=== PATIENT | female | born 1960 | race Caucasian/White ===

== ENCOUNTER 2019-12-05 12:59 | Outpatient (CLI) | payer OTHER, SELFPAY ==
--- NOTE | ~2019-12-05 | MM_ITS ---
EXAMINATION: MM diagnostic cali LT w sherri HISTORY: Follow-up left breast calcifications TECHNIQUE: Additional 3-D tomosynthesis images of the left breast were performed and synthetic 2-D im ages were generated. CAD analysis was submitted and interpreted. COMPARISON: 05/04/2018 FINDINGS: Breast composed of scattered areas of fibroglandular density. There has been no significant change to punctate clustered calcifications in the upper inner quadrant of the left breast posterior ly. No suspicious masses or architectural distortion. IMPRESSION: 1. Stable nonspecific clustered left breast calcifications, likely benign. 2. Recommend 6 month follow-up diagnostic bilateral mammogram BI-RADS category 3, probably benign findings. Reviewed, dictated and finalized at location A.
== END 2019-12-05 13:00 | disposition home or self-care (01) ==
LOC: ANHIMG 13:01
PROVIDERS: PCP Internal Medicine; Visit Provider Student in an Organized Health Care Education/Training Program
DX: R92.8 Other abnormal and inconclusive findings on diagnostic imaging of breast (principal)
CPT/HCPCS: 77061; 77065; G0279

== ENCOUNTER 2020-06-25 12:45 | Outpatient (CLI) | payer OTHER, SELFPAY ==
--- NOTE | ~2020-06-25 | DEXA_ITS ---
Bone Density Report Name: Dia Rivers Age: 60 Sex: Female Ethnicity: White Date of : 1960 Indication: postmenopausal; cancer; hysterectomy; Referring Provider: Danita Lane Study: Bone densitometry was performed. Exam Date: June 25, 2020 Accession number: [id number] Bone Density: Region BMD T-score Z-score Classification AP Spine (L1-L4) 1.267 2.0 3.5 Normal Femoral Neck (Left) 0.920 0.6 2.0 Normal Total Hip (Left) 1.221 2.3 3.3 Normal Total Hip Bilateral Avg 1.207 2.2 3.2 Normal Femoral Neck (Right) 0.938 0.8 2.1 Normal Total Hip (Right) 1.191 2.0 3.1 Normal World Health Organization criteria for BMD impression classify patients as: Normal (T-score at or above -1.0), Osteopenia (T-score between -1.0 and -2.5), or Osteoporosis (T-score at or below -2.5). 10-year Fracture Risk: FRAX not reported because: All T-scores for Spine Total, Hip Total, Femoral Neck at or above -1.0 Clinical Information Provided by Patient: Has used the following medications: Vitamin D, Calcium Has the following medical conditions: Cancer, Hysterectomy Patient maximum height was 66 Menopause Age: 54 No regular weight bearing exercise Drinks caffeinated beverages Onset of menses at age 11 Number of children 2 Impression: The patient has normal bone mass. Discussion: BONE DENSITY IS ABOVE THE MINIMUM DESIRABLE LEVEL AT ALL SKELETAL SITES TESTED. This patient?s bone mineral density is above the minimum desirable level (T-score -1.0 or better) at all sites measured. The patient should follow a healthful lifestyle (good nutrition with adequate calcium and vitamin D, and appropriate weight-bearing exercise). Follow-Up: Consider repeating this study in 5 years or sooner if there is some new clinical indication. Reported by: GENNARO on 06/25/2020 1:38:00 PM. Reviewed, dictated and finalized at location AIlan KILGORE
--- NOTE | ~2020-06-25 | MM_ITS ---
EXAMINATION: MM diagnostic mammo BI HISTORY: Follow-up left breast calcifications TECHNIQUE: Additional 3-D tomosynthesis images of the breasts were performed and synthetic 2-D images were generated. CAD analysis was submitted and interpreted. COMPARISON: Comparison to multiple prior studies sequentially, with oldest reviewed study dated 09/2017. BREAST PARENCHYMAL COMPOSITION: BREAST PARENCHYMAL COMPOSITION: There are scattered areas of fibroglandular density. FINDINGS: The breasts are stable. No significant change to clustered calcifications in the upper inne r quadrant of the left breast posteriorly. No new masses or architectural distortion in either breast . IMPRESSION: 1. Stable left breast calcifications, likely benign. 2. Recommend 6 month follow-up diagnostic left mammogram BI-RADS category 3, probably benign findings. Reviewed, dictated and finalized at location A. HAND
== END 2020-06-25 12:46 | disposition home or self-care (01) ==
PROVIDERS: PCP Internal Medicine; Visit Provider Student in an Organized Health Care Education/Training Program
DX: R92.8 Other abnormal and inconclusive findings on diagnostic imaging of breast (principal); Z78.0 Asymptomatic menopausal state
CPT/HCPCS: 77066; 77080

== ENCOUNTER 2020-12-26 11:46 | Outpatient (CLI) | payer OTHER, SELFPAY ==
--- NOTE | ~2020-12-26 | MM_ITS ---
EXAMINATION: MM diagnostic cali LT w sherri HISTORY: Follow-up left breast calcifications TECHNIQUE: Additional 3-D tomosynthesis images of the left breast were performed and synthetic 2-D im ages were generated. CAD analysis was submitted and interpreted. COMPARISON: Comparison to multiple prior studies sequentially, with oldest reviewed study dated 04/29. BREAST PARENCHYMAL COMPOSITION: Breast composed of scattered areas of fibroglandular density. FINDINGS: There are clustered punctate calcifications centered in the upper inner quadrant of the lef t breast without significant change from prior examinations. No new masses, calcifications or archite ctural distortion in the left breast to suggest malignancy. IMPRESSION: 1. Stable benign-appearing left breast calcifications. No evidence for malignancy. 2. Routine yearly screening mammogram and regular clinical breast examination are recommended. BI-RADS Category 2: Benign finding(s). Reviewed, dictated and finalized at location A. IMPRESSION: 1. Stable benign-appearing left breast calcifications. No evidence for malignan cy. 2. Routine yearly screening mammogram and regular clinical breast examination a re recommended. BI-RADS Category 2: Benign finding(s).
== END 2020-12-26 11:47 | disposition home or self-care (01) ==
LOC: ANHIMG 11:49
PROVIDERS: PCP Internal Medicine; Visit Provider Student in an Organized Health Care Education/Training Program
DX: R92.8 Other abnormal and inconclusive findings on diagnostic imaging of breast (principal)
CPT/HCPCS: 77061; 77065; G0279

== ENCOUNTER 2021-07-08 15:28 | Outpatient (CLI) | payer OTHER, SELFPAY ==
--- NOTE | ~2021-07-08 | MM_ITS ---
EXAMINATION: MM screening cali BI w sherri HISTORY: Screening TECHNIQUE: Craniocaudal and mediolateral oblique 3-D tomosynthesis images were obtained and synthetic 2-D images were generated. CAD analysis was submitted and interpreted. COMPARISON: Comparison to multiple prior studies sequentially, with oldest reviewed study dated 11/23. BREAST PARENCHYMAL COMPOSITION: There are scattered areas of fibroglandular density. FINDINGS: There are developing asymmetries in the right breast. No suspicious calcifications in the r ight breast. There are clustered calcifications in the upper inner quadrant of the left breast software programmer iorly which are not changed from prior studies. No new masses, calcifications or architectural distor tion in the left breast to suggest malignancy. IMPRESSION: 1. Developing right breast asymmetries. 2. Additional mammographic views and possible breast ultrasound are recommended. BI-RADS Category 0: Incomplete: Needs additional imaging evaluation. Reviewed, dictated and finalized at location A. ATTACHER IMPRESSION: 1. Developing right breast asymmetries. 2. Additional mammographic views and possible breast ultrasound are recommended . BI-RADS Category 0: Incomplete: Needs additional imaging evaluation.
== END 2021-07-08 15:29 | disposition home or self-care (01) ==
LOC: ANHIMG 15:34
PROVIDERS: PCP Internal Medicine; Visit Provider Student in an Organized Health Care Education/Training Program
DX: Z12.31 Encounter for screening mammogram for malignant neoplasm of breast (principal); R92.8 Other abnormal and inconclusive findings on diagnostic imaging of breast
CPT/HCPCS: 77063; 77067

== ENCOUNTER 2021-07-23 13:12 | Outpatient (CLI) | payer OTHER, SELFPAY ==
--- NOTE | ~2021-07-23 | MM_ITS ---
EXAMINATION: MM diagnostic cali RT w sherri HISTORY: Right breast asymmetries on screening mammogram TECHNIQUE: Additional 3-D tomosynthesis images of the right breast were performed and synthetic 2-D i mages were generated. CAD analysis was submitted and interpreted. COMPARISON: 07/08/2021, 06/25/2020,05/13/2019, 11/15/2018 FINDINGS: There is a return to baseline fibroglandular appearance with spot compression of the right breast in the areas questioned on screening mammogram. A stable mass in the middle third of the outer breast has an appearance consistent with an intramammary lymph node. IMPRESSION: 1. No mammographic evidence of malignancy. 2. Recommend routine screening mammography in one year. BI-RADS Category 2: Benign finding(s). Reviewed, dictated and finalized at location A. LFISH CHECKER
== END 2021-07-23 13:13 | disposition home or self-care (01) ==
PROVIDERS: PCP Internal Medicine; Visit Provider Student in an Organized Health Care Education/Training Program
DX: R92.8 Other abnormal and inconclusive findings on diagnostic imaging of breast (principal)
CPT/HCPCS: 77061; 77065; G0279

== ENCOUNTER 2022-07-09 14:31 | Outpatient (CLI) | payer OTHER, SELFPAY ==
--- NOTE | ~2022-07-09 | DEXA_ITS ---
Bone Density Report Name: SYED HARVEY Age: 62 Sex: Female Ethnicity: White Date of : 1960 Indication: postmenopausal; screening for osteoporosis; hysterectomy; Referring Provider: MONICA COLON Study: Bone densitometry was performed. Exam Date: July 09, 2022 Accession number: [id number] Bone Density: Region BMD T-score Z-score Classification AP Spine(L1-L4) 1.220 1.6 3.2 Normal Femoral Neck (Left) 0.972 1.1 2.5 Normal Total Hip (Left) 1.244 2.5 3.6 Normal Femoral Neck (Right) 0.941 0.8 2.3 Normal Total Hip (Right) 1.239 2.4 3.6 Normal Total Hip Mean 1.242 2.5 3.6 Normal World Health Organization criteria for BMD impression classify patients as: Normal (T-score at or above -1.0), Osteopenia (T-score between -1.0 and -2.5), or Osteoporosis (T-score at or below -2.5). 10-year Fracture Risk: FRAX not reported because: All T-scores for Spine Total, Hip Total, Femoral Neck at or above -1.0 Clinical Information Provided by Patient: Has used the following medications: Calcium, Multivitamin Has the following medical conditions: Hysterectomy Patient maximum height was 66.75 Menopause Age: 54 No regular weight bearing exercise Drinks caffeinated beverages Onset of menses at age 11 Number of children 2 Impression: The patient has normal bone mass. Discussion: LOW RISK OF FRACTURE; BONE DENSITY IS WELL ABOVE THE MINIMUM DESIRABLE LEVEL AND ABOVE AVERAGE FOR AGE AND SEX AT ALL SKELETAL SITES TESTED. This person's bone density is above expected limits for age and sex. This is rarely clinically significant, but should be pursued if there are significant musculoskeletal complaints. The patient should follow a healthful lifestyle (good nutrition with adequate calcium and vitamin D, and appropriate weight-bearing exercise). Follow-Up: Consider repeating this study in 5 years or sooner if there is some new clinical indication. Reported by: IRIS on 07/09/2022 3:06:00 PM. Reviewed, dictated and finalized at location AIlan KILGORE
--- NOTE | ~2022-07-09 | MM_ITS ---
EXAMINATION: MM screening cali BI w sherri HISTORY: Screening mammogram TECHNIQUE: Craniocaudal and mediolateral oblique 3-D tomosynthesis images were obtained and synthetic 2-D images were generated. CAD analysis was submitted and interpreted. COMPARISON: 07/23/2021 diagnostic right mammogram 07/08/2021 bilateral screening mammogram 12/26/2020 diagnostic left mammogram 06/25/2020 bilateral diagnostic mammogram 12/05/2019 diagnostic left mammogram 06/03/2019 No significant mammogram and limited left breast ultrasound 06/03/2019 diagnostic left mammogram and limited left breast ultrasound 05/13/2019 bilateral screening mammogram BREAST PARENCHYMAL COMPOSITION: There are scattered areas of fibroglandular density. FINDINGS: Scattered bilateral benign calcifications. There is no evidence of suspicious mass, calcifi cation, or architectural distortion to suggest malignancy in either breast. There has been no suspici ous interval change. IMPRESSION: 1. No mammographic evidence of malignancy. 2. Recommend routine screening mammography in one year. BI-RADS Category 2: Benign finding(s). Reviewed, dictated and finalized at location A. TH CONTROL TESTER
== END 2022-07-09 14:32 | disposition home or self-care (01) ==
LOC: ANHIMG 14:32
PROVIDERS: PCP Internal Medicine; Visit Provider Obstetrics & Gynecology
DX: Z12.31 Encounter for screening mammogram for malignant neoplasm of breast (principal); Z78.0 Asymptomatic menopausal state
CPT/HCPCS: 77063; 77067; 77080

== ENCOUNTER → 2023-04-01 10:35 | Outpatient (CLI) | payer OTHER, SELFPAY ==
--- NOTE | ~2023-04-01 | US_ITS ---
Limited Abdominal Sonogram: Real-time sonographic imaging of the right upper quadrant was performed. Clinical History: Abnormal serum enzyme levels Findings: The liver appears echogenic, with no evidence of mass lesion or bile duct dilatation. Main portal vein demonstrates normal direction of flow. The gallbladder is absent, compatible prior farzana cystectomy. The common bile duct measures 7 mm. The visualized pancreas, aorta, and IVC are unremark able. Impression: Diffuse fatty infiltration of liver. Status post cholecystectomy. Reviewed, dictated and finalized at location M. Impression: Diffuse fatty infiltration of liver. Status post cholecystectomy.
== END ==
PROVIDERS: PCP Internal Medicine; Visit Provider Internal Medicine
DX: R74.8 Abnormal levels of other serum enzymes (principal); Z90.49 Acquired absence of other specified parts of digestive tract
CPT/HCPCS: 76705

== ENCOUNTER 2023-08-20 14:09 | Outpatient (CLI) | payer OTHER, SELFPAY ==
--- NOTE | ~2023-08-20 | MM_ITS ---
EXAMINATION: MM screening [facility] BI w sherri HISTORY: Screening TECHNIQUE: Craniocaudal and mediolateral oblique 3-D tomosynthesis images were obtained and synthetic 2-D images were generated. CAD analysis was submitted and interpreted. COMPARISON: Comparison to multiple prior studies sequentially, with oldest reviewed study dated 05/30. BREAST PARENCHYMAL COMPOSITION: Not dense: There are scattered areas of fibroglandular density. FINDINGS: No significant change to bilateral breast calcifications. There is no evidence of suspiciou s mass, calcification, or architectural distortion to suggest malignancy in either breast. There has been no suspicious interval change. IMPRESSION: 1. No mammographic evidence of malignancy. 2. Recommend routine screening mammography in one year. BI-RADS Category 2: Benign finding(s). Reviewed, dictated and finalized at location A. AGE MANAGEMENT ARCHITECT
== END 2023-08-20 14:10 | disposition home or self-care (01) ==
PROVIDERS: PCP Internal Medicine; Visit Provider Registered Nurse
DX: Z12.31 Encounter for screening mammogram for malignant neoplasm of breast (principal)
CPT/HCPCS: 77063; 77067

== ENCOUNTER 2024-09-23 15:07 | Outpatient (CLI) | payer MEDICARE, SELFPAY ==
--- NOTE | ~2024-09-23 | MM_ITS ---
EXAMINATION: MM screening cali BI w sherri HISTORY: Screening TECHNIQUE: Craniocaudal and mediolateral oblique 3-D tomosynthesis images were obtained and synthetic 2-D images were generated. CAD analysis was submitted and interpreted. COMPARISON: 08/20/2023 and dating back to 06/25/2020 BREAST PARENCHYMAL COMPOSITION: The breasts are heterogeneously dense, which may obscure small masses . FINDINGS: Interval increase in the microcalcifications when compared with prior imaging in the centra l upper left breast for which magnification views are recommended. Otherwise stable parenchymal pattern without architectural distortion, discrete masses or significant asymmetry. IMPRESSION: Interval increase in the number of microcalcifications when compared with prior imaging in the centra l upper left breast for which magnification views are recommended. BI-RADS Category 0: Incomplete: Needs additional imaging evaluation. Reviewed, dictated and finalized at location A. IMPRESSION: Interval increase in the number of microcalcifications when compared with prior imaging in the central upper left breast for which magnification views are rec ommended. BI-RADS Category 0: Incomplete: Needs additional imaging evaluation.
--- OUTSIDE RECORDS SUMMARY | 2024-09-23 15:10 | XMS_ITS | Clinical Summary ---
Author Organization [facility] Address [address] [place] [address] Care Team Providers Care Forms Examiner Name Role Phone Artie Berger MD Primary Care Provider [phone] [facility],non-owned Affiliates and Associated Physician Practices is amultiple site organization consisting of ambulatory clinics and hospital sitesin [place], [place], [place] and [place]. This disclosure is being madepursuant to the Care Everywhere program and may not contain all information available regarding this patient. Last updated 18.[facility] Allergies Active Allergy Reactions Criticality Noted Date Comments Vitamin K Other Low 05/05/2017 Cellulitis Medications * Be aware that medications may not be up to date on this document. Alwaysverify current medications with the patient. Medication Sig Dispensed Refills Start Date End Date Status Multiple Vitamin (MULTI VITAMIN PO) Active calcium 500 mg TABS tablet Take 500 mg by mouth 2 times daily with morning and evening meal Active [place]-3 Fatty Acids (FISH OIL OMEGA-3 PO) Act karen levothyroxine (SYNTHROID) 100 MCG tablet Take 100 mcg by mouth daily before breakfast Active lisinopril-hydroCHLOR Othiazide (PRINZIDE; ZESTORETIC) 20-12.5 MG tablet Take 1 tablet by mouth once daily Active aspirin (ASPIRIN) 81 MG tablet Take 81 mg by mouth once daily Active Active Problems Problem Noted Date Diagnosed Date Lichen sclerosus et atrophicus 05/05/2017 Hyperlipidemia 05/05/2017 Type 2 diabetes mellitus without complications 1 07/05/2016 Essential (primary) hypertension 05/05/2017 Hemorrhoids 05/05/2017 Endometrial cancer 10/30/2015 Family History Medical History Relation Name Comments Cancer - Colon Paternal Grandfather Relation Name Status Comments Paternal Grandfather Social History Tobacco Use Types Packs/Day Years Used Date Smoking Tobacco: Never Smokeless Tobacco: Never Alcohol Use Standard Drinks/Week Comments Yes 0 (1 standard drink = 0.6 oz pur e alcohol) Sex and Gender Information Value Date Recorded Sex Assigned at Not on file Gender Identity Not on file Sexual Orientation Not on file Last Filed Vital Signs Vital Sign Reading Time Taken Comments Blood Pressure 124/82 01/05/2018 3:01 PM CDT Pulse - - Temperature - - Respiratory Rate - - Oxygen Saturation - - Inhaled Oxygen Concentration - - Weight 110.2 kg (243 lb) 01/05/2018 3:01 PM CDT Height 167.6 cm (5' 6 ) 01/05/2018 3:01 PM CDT Body Mass Index 39.22 01/05/2018 3:01 PM CDT Plan of Treatment Health Maintenance Due Date Last Done Comments BONE DENSITY TESTING 1960 COLOGUARD (AGES 45-75) - COL ON CA SCREENING 1960 COLON MONITORING 1960 COLONOSCOPY - COLON CA SCREENING 1960 CT COLONOGRAPHY - COLON CA SCREENING 1960 Colorectal Cancer Screening 1960 FIT - COLON CA SCREENING 1960 FLEX SIG - COLON CA SCREENING 1960 LIPID TESTING 1960 MAMMOGRAM 1960 PAP SMEAR 1959 HIV SCREENING 1974 HEPATITIS C SCREENING 04/21/1977 DTAP/TDAP/TD VACCINES (1 - Tdap) 1978 PNEUMOCOCCAL VACCINE 50+ (1 of 1 - PCV) 2009 ZOSTER VACCINE (1 of 2) 2009 SCREENING FOR DIABETES 01/05/2018 COVID-19 VACCINE ( - 2023-2 5 season) 2024 INFLUENZA VACCINE (#1) 2024 DEPRESSION SCREENING 06/29/2024 Respiratory Syncytial Virus (RSV) Vaccine Pt: or over 60 yrs (1 - 1-dose 75+ series) 2034 HEPATITIS B VACCINE Aged Out No longe r eligible based on patient's age to complete this topic HIB VACCINE Aged Out No longer eligi ble based on patient's age to complete this topic HPV VACCINE Aged Out No longer eligi ble based on patient's age to complete this topic MENINGOCOCCAL (Group B) VACC INE SHARED DECISION-MAKING Aged Out No longer eligibl e based on patient's age to complete this topic MENINGOCOCCAL GROUPS A/C/Y/W VACCINE Aged Out No longer eligible b ased on patient's age to complete this topic Care Teams Forms Examiner Relationship Specialty Start Date End Date Artie Berger MD [address] [place] [address] [address] [place] [address] PCP - General 10/24/15
--- OUTSIDE RECORDS SUMMARY | 2024-09-23 15:10 | XMS_ITS | CONTINUITY OF CARE DOCUMENT ---
Author Name madi barraza Address Unknown Organization [facility] Address [address] [place] [address] Phone [phone] Care Team Providers Care Cake Decorator Name Role Phone Grzegorz HUANG, Nydia Unavailable INSURANCE PROVIDERS Payer name Policy type / Coverage type Miranda red green party ID [employer] PPO Other [id number]
--- OUTSIDE RECORDS SUMMARY | 2024-09-23 15:10 | XMS_ITS | Clinical Summary ---
Author Organization [facility] Address [address] [place] [address] Care Team Providers Care Personnel Research Psychologist Name Role Phone Artie Berger MD Primary Care Provider Allergies Active Allergy Reactions Criticality Noted Date Comments Menaquinone-7 (Vitamin K2) Rash Low 8 Morphine Nausea and Vomiting Low 05/26/2018 Medications levothyroxine 100 mcg tablet Take 100 mcg by mouth daily. Active lisinopril-hydr oCHLOROthiazide (ZESTORETIC) 20-12.5 mg tablet Take 1 Tablet by mouth daily. Active metFORMIN (GLUCOPHAGE) 1,000 mg tablet Take 1,000 mg by mouth 2 times daily with meals. Active pravastatin (PRAVACHOL) 40 mg tablet Take 40 mg by mouth late in the day. Active calcium carbonate/vitam in D3 (CALCIUM 500 + D ORAL) Take by mouth daily. Active multivitamin (DAILY-EARNEST) tablet Take 1 Tablet by mouth daily. Active clobetasol 0.025 % Cream Apply to affected area 1 time daily as needed. Active fish oil-omega-3 fatty acids (FISH OIL) 340-1,000 mg Capsule Take by mouth. 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 Gender Identity Not on file Sexual Orientation Not on file Last Filed Vital Signs Vital Sign Reading Time Taken Comments Blood Pressure 127/81 01/06/2019 12:59 PM CDT Pulse 71 01/06/2019 12:59 PM CDT Temperature 36.7 C (98 F) 01/06/2019 12:59 PM CDT Respiratory Rate - - Oxygen Saturation 97% 01/06/2019 12: 59 PM CDT Inhaled Oxygen Concentration - - Weight 106.6 kg (235 lb 1.6 oz) 019 12:59 PM CDT Height 167.6 cm (5' 6 ) 01/06/2019 12:5 9 PM CDT Body Mass Index 37.95 01/06/2019 12:59 PM CDT Plan of Treatment Health Maintenance Due Date Last Done Comments DIABETES ANNUAL FOOT EXAM 1977 DIABETES ANNUAL RETINAL EXAM 1977 DIABETES HBA1C Q 6 MONTHS 1977 DIABETES MICROALBUMIN ANNUAL SCREEN 1977 LDL CHOLESTEROL ANNUAL 1977 DTAP/TDAP/TD VACCINES (1 - Tdap) 1978 PNEUMOCOCCAL VACCINE 50+ YEA RS (1 of 2 - PCV) 1978 COLORECTAL SCREENING 2004 Colorectal Cancer Screening 2004 FIT-DNA Q 3 years 2004 FIT/FOBT Q 1 year 2004 Flex Sig/CT Colonography Q 5 years 2004 ZOSTER VACCINE (1 of 2) 2009 BREAST CANCER SCREENING 11/24/2019 11/24/19 19, 06/01/2018, 05/18/2018, Additional history exists INFLUENZA VACCINE (#1) 2024 OSTEOPOROSIS SCREENING 2024 RSV VACCINE (60+ or ) (1 - 1-dose 75+ series) 2034 Procedures Procedure Name Priority Date/Time Associated Diagnosis Comments MAMMOGRAM REPORT Routine 11/23/2018 from Last 3 Months or Most Recently Relevant to Health Maintenance Results * MAMMOGRAM REPORT (11/23/2018) us Abstract Provider MAMMO ORDERABLES Edited Result - Final [facility] from Last 3 Months or Most Recently Relevant to Health Maintenance Care Teams Personnel Research Psychologist Relationship Specialty Start Date End Date Artie Berger MD [address] [facility] [address] [place] [address] PCP - General Internal Medicine 05/25/18
== END 2024-09-23 15:08 | disposition home or self-care (01) ==
LOC: ANHIMG 15:09
PROVIDERS: PCP Internal Medicine; Visit Provider Nurse Practitioner Obstetrics & Gynecology
DX: Z12.31 Encounter for screening mammogram for malignant neoplasm of breast (principal); R92.8 Other abnormal and inconclusive findings on diagnostic imaging of breast
CPT/HCPCS: 77063; 77067

== ENCOUNTER 2024-10-03 12:16 | Outpatient (CLI) | payer MEDICARE, SELFPAY ==
--- NOTE | ~2024-10-03 | MM_ITS ---
EXAMINATION: MM diagnostic cali LT w sherri HISTORY: Follow-up left breast calcifications TECHNIQUE: Additional 3-D tomosynthesis images of the left breast were performed and synthetic 2-D im ages were generated. CAD analysis was submitted and interpreted. COMPARISON: Comparison to multiple prior studies sequentially, with oldest reviewed study dated 12/26. BREAST PARENCHYMAL COMPOSITION: Not dense: There are scattered areas of fibroglandular density. FINDINGS: The left breast is stable. Clustered punctate monomorphic calcifications centered in the up per inner quadrant of the left breast are not significantly changed from prior examinations dating ba ck to 12/26/2020 allowing for differences of technique. No new masses, calcifications or architectural distortion. IMPRESSION: 1. Stable benign-appearing left breast calcifications dating back to 12/26/2020. No evidence for malig jesse. 2. Routine yearly screening mammogram and regular clinical breast examination are recommended. BI-RADS Category 2: Benign finding(s). Reviewed, dictated and finalized at location A. IMPRESSION: 1. Stable benign-appearing left breast calcifications dating back to 12/26/2020. No evidence for malignancy. 2. Routine yearly screening mammogram and regular clinical breast examination a re recommended. BI-RADS Category 2: Benign finding(s).
--- OUTSIDE RECORDS SUMMARY | 2024-10-03 13:56 | XMS_ITS | Clinical Summary ---
Author Organization [facility] Address [address] [place] [address] Care Team Providers Care Corporate Aircraft Mechanic Name Role Phone Artie Berger MD Primary Care Provider [phone] Source Comments [facility],non-owned Affiliates and Associated Physician Practices is amultiple site organization consisting of ambulatory clinics and hospital sitesin [place], [place], [place] and [place]. This disclosure is being madepursuant to the Care Everywhere program and may not contain all information available regarding this patient. Last updated 18.[facility] Allergies Active Allergy Reactions Criticality Noted Date [...] daily with morning and evening meal Active Slade-3 Fatty Acids (FISH OIL OMEGA-3 PO) Act [...] 2 diabetes mellitus without complications 1 07/05/2016 Overview (09/28/2024): IMO 09/28/2024 Essential (primary) hypertension 05/05/2017 Hemorrhoids 05/05/2017 Endometrial [...] VACCINE ( - 2023-2 5 season) 2024 DEPRESSION SCREENING 06/29/2024 INFLUENZA VACCINE (Season Ended) 2025 Respiratory Syncytial Virus (RSV) Vaccine Pt: or [...] age to complete this topic Care Teams Corporate Aircraft Mechanic Relationship Specialty Start Date End Date Artie Berger MD [address] [place] [id number] PCP - General 10/24/15
--- OUTSIDE RECORDS SUMMARY | 2024-10-03 13:56 | XMS_ITS | Continuity of Care Document ---
Author Organization [facility] Address [address] [place] [address] Phone Care Team Providers Care Coat Fitter Name Role Phone Marvin Edd Unavailable Unavailable Procedures Procedure Date Office/outpatient Visit, Est Office/outpatient Visit, Est Office/outpatient Visit, Est Advance Directives Directive Yes / No Effective Date File Name No Information Encounters Encounter Description Practice Location Reason(s) For Visit Diagnoses Date Provider Providers Copied on Encounter Office/outpat ient Visit, [facility], [address] [place] [address] [address], [place], [place], [id number], [place] tel:[phone] [facility] No Information 0 Krishnasamy Edd. [address] [address], [place], [place], [facility], [place]. tel:[phone] Office/outpat ient Visit, [facility], [address], [place], [place], [id number], [place] tel:[phone] [facility] No Information 0 Krishnasamy Edd. [address], [place], [address], [place]. tel:[phone] Office/outpat ient Visit, [facility], [address] [place] [address] [address], [place], [place], [id number], tel:[phone] [place] [facility] No Information 0-201 0 Marvin Puga. [facility], [facility] [address], [place], [place], [facility], . tel:[phone] Referring Provider: Delfin Toscano, [address] [facility] [address], [place], [place], [facility]. tel:[phone] Family History Family Member Type Diagnosis Age At Onset No Information Payers Payer name Insurance type Covered alliance party ID Authoriza maite(s) [employer] SOI CI [id number] Social History Type Description Quantity Date Captured Comments Sex Female Smoking Status No Information Chief Complaint And Reason For Visit No Information Reason For Referral Reason For Referral No Information History Of Present Illness Encounter Date Complaint History Of Prese nt Illness No Information Functional Status Date Functional Assessmen t No Information Instructions Date Instruction Additional Infor mation No Information Assessments Type Assessment Date No Information Patient Care Teams Name Effective Dates (start - stop) Status Members No Information
--- OUTSIDE RECORDS SUMMARY | 2024-10-03 13:56 | XMS_ITS | CONTINUITY OF CARE DOCUMENT ---
Author Name madi barraza Address Unknown Organization [facility] Address [address] [place] [address] Phone [phone] Care Team Providers Care Roofer Applicator Name Role Phone Grzegorz HUANG, Nydia Unavailable INSURANCE PROVIDERS Payer name Policy type / Coverage type Miranda red democrat ID [id number] PPO Other [id number]
--- OUTSIDE RECORDS SUMMARY | 2024-10-03 13:56 | XMS_ITS | Clinical Summary ---
Author Organization [facility] Address [address] [place] [address] Care Team Providers Care Installation Coordinator Name Role Phone Artie Berger MD Primary Care Provider [phone] Allergies Active Allergy Reactions Criticality Noted Date [...] on file Legal Sex Female 2:39 PM LICENSED WEIGHER Gender Identity Not on file Sexual Orientation [...] Recently Relevant to Health Maintenance Care Teams Installation Coordinator Relationship Specialty Start Date End Date Artie Berger MD [address] [facility] [address] [place] [address] PCP - General Internal Medicine 05/25/18
== END 2024-10-03 12:17 | disposition home or self-care (01) ==
LOC: ANHIMG 12:16
PROVIDERS: PCP Internal Medicine; Visit Provider Nurse Practitioner Obstetrics & Gynecology
DX: R92.8 Other abnormal and inconclusive findings on diagnostic imaging of breast (principal)
CPT/HCPCS: 77061; 77065; G0279

== ENCOUNTER 2025-02-22 11:00 | Outpatient (CLI) | payer MEDICARE, SELFPAY ==
--- NOTE | ~2025-02-22 | US_ITS ---
EXAMINATION: US aorta [facility] DATE: 02/22/2025 12:42 CDT INDICATION: Screening for abdominal aortic aneurysm TECHNIQUE: Grayscale, color Doppler, and pulsed Doppler images of the aorta and common iliac arteries were obtained. COMPARISON: None. FINDINGS: The proximal aorta measures 2.8 cm greatest sagittal dimension. The mid aorta measures 2.4 cm greatest sagittal dimension. The distal aorta measures 1.8 cm greatest sagittal dimension. The right common internal iliac artery measures 1.3 cm. The left common iliac artery measures 1.1 cm. IMPRESSION: 1. Normal caliber aorta without aneurysm. Reviewed, dictated and finalized at location O.
== END 2025-02-22 11:01 | disposition home or self-care (01) ==
LOC: GOSHIMG 11:00
PROVIDERS: PCP Internal Medicine; Visit Provider Internal Medicine
DX: Z13.6 Encounter for screening for cardiovascular disorders (principal)
CPT/HCPCS: 76706

== ENCOUNTER 2025-04-06 14:50 | Outpatient (CLI) | payer MEDICARE, SELFPAY ==
--- NOTE | ~2025-04-06 | DEXA_ITS ---
Bone Density Report Name: SYED HARVEY Age: 64 Sex: Female Ethnicity: White Date of : 1960 Indication: postmenopausal; screening for osteoporosis; height loss; cancer; seizure disorder; hysterectomy; Referring Provider: GUNNAR, SHAKEEL Matias Study: Bone densitometry was performed. Exam Date: April 06, 2025 Accession number: [id number] Bone Density: Region BMD T-score Z-score Classification AP Spine(L1, L2, L3) 1.282 2.4 4.2 Normal Femoral Neck (Left) 0.926 0.7 2.3 Normal Total Hip (Left) 1.185 2.0 3.3 Normal Femoral Neck (Right) 0.902 0.5 2.0 Normal Total Hip (Right) 1.169 1.9 3.1 Normal Total Hip Mean 1.177 2.0 3.2 Normal World Health Organization criteria for BMD impression classify patients as: Normal (T-score at or above -1.0), Osteopenia (T-score between -1.0 and -2.5), or Osteoporosis (T-score at or below -2.5). 10-year Fracture Risk: FRAX not reported because: All T-scores for Spine Total, Hip Total, Femoral Neck at or above -1.0 Clinical Information Provided by Patient: Has used the following medications: Calcium, Multivitamin Has the following medical conditions: Any Seizure Disorders, Cancer, Hysterectomy Patient maximum height was 66.75 Menopause Age: 54 No regular weight bearing exercise Drinks caffeinated beverages Onset of menses at age 11 Number of children 2 Impression: The patient has normal bone mass. Discussion: BONE DENSITY IS ABOVE THE MINIMUM DESIRABLE LEVEL AT ALL SKELETAL SITES TESTED. This patient?s bone mineral density is above the minimum desirable level (T-score -1.0 or better) at all sites measured. The patient should follow a healthful lifestyle (good nutrition with adequate calcium and vitamin D, and appropriate weight-bearing exercise). Follow-Up: Consider repeating this study in 5 years or sooner if there is some new clinical indication. Reported by: MARGARET on 04/06/2025 3:36:00 PM. Reviewed, dictated and finalized at location A.
== END 2025-04-06 14:51 | disposition home or self-care (01) ==
LOC: ANHFOHIMG 14:51
PROVIDERS: PCP Internal Medicine; Visit Provider Internal Medicine
DX: M81.0 Age-related osteoporosis without current pathological fracture (principal)
CPT/HCPCS: 77080